=== PATIENT | male | born 1960 | race Caucasian/White ===

== ENCOUNTER 2023-05-04 11:30 | Outpatient (CLI) | payer OTHER, SELFPAY ==
[2023-05-04 12:15] LABS: Basophils Percent Auto 0.5 % (0.2-1.2); Eosinophils Absolute Auto 0.2 K/mm3 (0-0.3); Eosinophils Percent Auto 2.4 % (0-4.4); Hematocrit 48.8 % (42.0-52.0); Hemoglobin 16.2 g/dL (14.0-18.0); Immature Granulocyte Absolute 0.02 K/mm3 (0.00-0.031); Immature Granulocyte Percent A 0.2 % (0-0.5); Lymphocytes Percent Auto 26.5 % (18.3-44.2); Mean Corpuscular HGB Conc 33.2 g/dl (32-36); Mean Corpuscular Hemoglobin 30.1 pg (26-34); Mean Corpuscular Volume 90.5 fl (80-100); Mean Platelet Volume 9.5 fl (7.4-10.4); Monocytes Absolute Auto 0.7 K/mm3 (0.1-0.6); Monocytes Percent Auto 8.3 % (2.6-8.5); Neutrophils Absolute Auto 5.1 K/mm3 (1.3-6.7); Neutrophils Percent Auto 62.1 % (45.5-73.1); Platelet Count Result 194 k/mm3 (150-375); Red Blood Count 5.39 M/mm3 (4.6-6.20); Red Cell Distribution Width 12.4 % (11.5-14.5); White Blood Count 8.3 K/mm3 (4.5-10.0)
[2023-05-04 12:26] LABS: Alanine Aminotransferase 37 U/L (6-50); Albumin Level 4.8 g/dL (3.5-5.1); Alkaline Phosphatase 73 U/L (38-126); Anion Gap 8 mmol/L (8-16); Aspartate Amino Transferase 30 U/L (17-59); Bilirubin,Total 0.7 mg/dL (0.2-1.3); Blood Urea Nitrogen 20 mg/dL (9-20); Calcium 9.4 mg/dL (8.4-10.2); Carbon Dioxide 28 mmol/L (22-30); Chloride 104 mmol/L (98-107); Estimated Glomerular Filt Rate > 60; Glucose 102 mg/dL (65-110); Lactate Dehydrogenase 164 U/L (120-246); Potassium 4.7 mmol/L (3.4-5.0); Sodium 140 mmol/L (137-145)
[2023-05-09 15:24] LABS: HCG Tumor Marker <5 mIU/mL (<5)
[2023-05-10 15:23] LABS: Alpha Fetoprotein Tumor Marker 1.6 ng/mL (<6.1)
== END 2023-05-04 11:31 | disposition home or self-care (01) ==
LOC: ANHLAB 11:35
PROVIDERS: PCP Family Medicine; Visit Provider Urology
DX: N50.89 Other specified disorders of the male genital organs (principal)
CPT/HCPCS: 36415; 80053; 82105; 83615; 84702; 85025

== ENCOUNTER 2023-05-06 12:57 | Outpatient (CLI) | payer OTHER, SELFPAY ==
--- NOTE | 2023-05-06 13:30 | ECG_ITS ---
Measurements Intervals [place] Rate: 73 P: 32 NH: 180 QRS: -34 QRSD: 107 T: 32 QT: 379 QTc: 420 Interpretive Statements SINUS RHYTHM MARKED LEFT AXIS DEVIATION [QRS AXIS < -30] NONSPECIFIC T-WAVE ABNORMALITY WARNING: DATA QUALITY MAY AFFECT INTERPRETATION NO PREVIOUS ECG AVAILABLE FOR COMPARISON Electronically Signed On 05-06-2023 14:29:30 CDT by Yogi Manley M.D.
== END 2023-05-06 12:58 | disposition home or self-care (01) ==
LOC: ANHSURGERY 13:00
PROVIDERS: PCP Family Medicine; Visit Provider Urology
DX: N50.89 Other specified disorders of the male genital organs (principal); I10 Essential (primary) hypertension; Z01.818 Encounter for other preprocedural examination
CPT/HCPCS: 87086; 93005

== ENCOUNTER 2023-05-10 04:22 | Day surgery (SDC) | payer OTHER, SELFPAY ==
[2023-05-05 14:28] VITALS: BMI 28.8
--- NOTE | 2023-05-05 14:56 | PC.NURSE ---
Report to the Outpatient Waiting Room, entrance under the green pavilion located off [facility], at time __7:45AM on date __05/10/23 . Planned Procedure Time: _9:45AM . Time changes happen often and if your time is changed the preop area will call you the afternoon before. - You and your visitor will be asked to self-screen and do not enter if you have any COVID symptoms. - A mask is optional within the hospital at this time. Patients may have clear liquids (water, carbonated beverages, clear teas, apple juice) until 3 hours prior to surgery with a maximum of 20 ounces. - No food from midnight until time of surgery Take the following medications with a SIP of water the morning of surgery: __NONE DO NOT STOP ANY OF YOUR OTHER PRESCRIPTION MEDICATIONS PRIOR TO SURGERY ?EXCEPT THE FOLLOWING Medications to discontinue per physician HOLD ASPIRIN AND ALL VITAMINS/SUPPLEMENTS 5 DAYS PRE-OP PER DR ESTEBAN(PER PATIENT)_ Date to take last dose___05/04/23 Please no make-up, nail tajik, hairspray, perfume, deodorant, or body powder the day of surgery. No jewelry (including any body piercings) or valuables the day of surgery, leave them at home. Please take a shower or bath the night before, or the morning of, surgery with an antibacterial soap. Wear comfortable, loose fitting clothing. - Jewelry must be removed prior to entering the operating room. Rings and piercings that are not removed may be cut off. - The hospital will not accept responsibility for valuables. - Please leave all valuables, including medications, at home the day of surgery. If you are going home after surgery, a licensed caterpillar driver must drive you home. - NO public transportation without another adult if you receive anesthesia. - We recommend that an adult stay with you for 24 hours following discharge. - We also recommend that you do not drive, make important decision, drink alcoholic beverages, or take any drugs that were not prescribed by your health care provider for at least 24 hours after your discharge time. Follow any additional instructions given to you from your surgeon. If you or anyone in your household have experienced Covid symptoms in the past week, please notify your surgeon or the nurse liaison at the phone number below for possible testing. Telephone instructions given to __PATIENT and asked if any additional questions and then verbalized understanding. Patient advised to call surgeon office or pre surgery nurse liaison [phone] if any additional questions.
[2023-05-10] VITALS (10 sets, daily range): BP systolic 133–160; BP diastolic 74–92; PULSE 79–102; RESP 12–18; TEMP 36.6–36.9; O2SAT 92–100
[2023-05-10] MEDS: LACTATED RINGERS 1,000 ML 30 ML IV CONT ×2 (08:07→12:13)
--- NOTE | 2023-05-10 09:59 | P.PNAN_ITS ---
Anes - Initial Pre Proc Eval Procedure: Operation Date: 05/10/23 09:45 Proposed Procedures p Left Radical Orchiectomy - Donald Barbosa MD Date/Time: 05/10/23 09:59 Surgeon: Donald Barbosa MD Pre Op Diagnosis: left testicular mass Patient Data Age: 63 Gender: M Height: 1.78 m Weight: 91.2 kg Last Vital Signs Temp 98 F 05/10/23 07:53 Pulse 79 05/10/23 07:53 Resp 16 05/10/23 07:53 BP 143/88 H 05/10/23 07:53 Pulse Ox 100 05/10/23 07:53 O2 Del Method Room Air 05/10/23 07:53 Allergies Allergy/AdvReac Type Severity Reaction Status Date / Time No Known Allergies Allergy Verified 05/10/23 07:43 Home Medications Medication Instructions Recorded Confirmed Type ascorbic acid (vitamin C) 500 mg 1,000 mg PO DAILY 05/05/23 05/05/23 History chewable tablet aspirin 81 mg tablet,delayed 81 mg PO DAILY 05/05/23 05/05/23 History release cetirizine 10 mg tablet 10 mg PO DAILY PRN Sinus Symptoms 05/05/23 05/05/23 History cholecalciferol (vitamin D3) 125 125 mcg PO DAILY 05/05/23 05/05/23 History mcg (5,000 unit) capsule fluticasone propionate 50 2 spray intranasal DAILY PRN 05/05/23 05/05/23 History mcg/actuation nasal Congestion spray,suspension multivitamin 1 tablet PO DAILY 05/05/23 05/05/23 History omega-3 fatty acids 500 mg capsule 500 mg PO DAILY 05/05/23 05/05/23 History omeprazole 20 mg capsule,delayed 20 mg PO QAM 05/05/23 05/05/23 History release pravastatin 20 mg tablet 20 mg PO HS 05/05/23 05/05/23 History telmisartan 40 mg tablet 40 mg PO QAM 05/05/23 05/05/23 History zinc gluconate 30 mg tablet 30 mg PO DAILY 05/05/23 05/05/23 History Patient hx anesthesia problems: none Family hx anesthesia problems: none Results Review: All pre-operative results and documents have been reviewed as part of the pre- operative evaluation. PMFSH Social History Social History Smoking status: Never smoker Alcohol intake: current Drinks per week: 2 Substance use: never Living arrangements: with family Additional living arrangements comments: Spiritual care concerns: No Anes - Eval Final PreProcedure Day of Procedure 05/10/23 09:59 Patient weight: normal Heart: regular rate and rhythm Lungs: clear to auscultation Airway: Mallampati scale class II Neurological: alert and oriented Last oral intake: >/= 8 hours ASA classification: III Emergent: no Anesthetic plan: proceed Anesthesia type and monitoring: general LMA and standard monitoring Results Review: All pre-operative results and documents have been reviewed as part of the pre- operative evaluation. Informed Consent: The patient's anesthetic plan and its attendant risks and benefits were discussed with the patient/family/POA. Questions were solicited and answers provided to the satisfaction of the patient/family/POA.
--- NOTE | 2023-05-10 10:05 | WPDHPUPDATE1 ---
History and Physical Update Update Date/Time: 05/10/23 10:05 History and Physical has been reviewed, including an updated exam of the patient. There are NO changes in the patient's condition. Risks, benefits, and alternatives have been discussed and questions answered. Patient agrees to proceed with procedure. Proceed with left radical orchiectomy
[2023-05-10] MEDS: ceFAZolin 2 GM/D5W 50 ML 2 GM/50 ML BAG IVPB (10:40)
[2023-05-10] MEDS: BUPivacaine HCL 0.25% PF 30 ML VIAL INFILTRATE (11:19)
--- NOTE | 2023-05-10 12:03 | P.OP_ITS ---
Procedure Note - Detailed Date of Procedure 05/10/23 Pre-op Diagnosis left testicular mass Post-op Diagnosis Same Procedure Performed Left radical orchiectomy Surgeon Donald Barbosa MD Anesthesia General Description of Procedure Patient is taken to the operative suite correctly identified. Once anesthesia was obtained was prepped draped usual sterile fashion. Left inguinal incision was made. This was carried down through the external oblique. The fascia was incised. The ilioinguinal nerve was visualized. The cord was visualized and a [place] drain was placed around it. The testicle was then brought out into the operative sac. Ligated the gubernaculum of the testicle. The cord was then wor ked its way up to the inguinal ring. It was secured with with heavy hemostats. It was then suture ligated using 0 Prolene. A longer tail was left on the most distal aspect. There was good hemostasis. This retracted into the abdominal cavity. The fascia was then closed using 2-0 Vicryl interrupted fashion. Transverse fascia was closed using 3-0 chromic. Skin was closed using 4-0 Monocryl. Anesthetize the incision using 1% lidocaine. Patient tolerated procedure well without any complication and was taken recovery stable condition. He will follow-up in 1-2 weeks for postop visit as well as discussion of his pathology. This completes sedation. Please send a copy of this op note to my office Estimated Blood Loss 10 Drains No Packing No Pathology Yes Complications No immediate complications Condition Stable Disposition PACU
[2023-05-10] MEDS: fentaNYL CITRATE INJ (*CRX) 100 MCG/2 ML VIAL 25 MCG IV PUSH ×8 (12:25→12:55)
[2023-05-10] MEDS: ONDANSETRON INJ 4 MG/2 ML VIAL IV PUSH (14:11)
[2023-05-10] MEDS: oxyCODONE HCL (*CRX) 5 MG TAB IR PO (14:46)
== END 2023-05-10 15:10 | disposition home or self-care (01) ==
PROVIDERS: PCP Family Medicine; Visit Provider Urology
PROC: (CPT 54530; principal; 2023-05-10 09:45)
DX: C62.12 Malignant neoplasm of descended left testis (principal); Z79.82 Long term (current) use of aspirin
CPT/HCPCS: 54530; 88305; A9270; J0690; J1100; J2250; J2405; J2704; J3010; J7120